=== PATIENT | male | born 1960 | race Caucasian/White ===

== ENCOUNTER 2016-08-16 05:43 | Day surgery (SDC) | payer OTHER ==
[2016-08-16] VITALS (8 sets, daily range): BP systolic 122–135; BP diastolic 77–90; PULSE 54–85; RESP 13–16; O2SAT 94–100
[~2016-08-16] VITALS: Ht 182.9 cm; Wt 101.8 kg
[~2016-08-16 05:43] MED LIST: LISI-567 PO
[2016-08-16] MEDS ORDERED: Glycopyrrolate 0.2 MG/ML 1mL Inj ONE (05:44)
[2016-08-16] MEDS ORDERED: Ondansetron 2 mg/mL 2 mL Inj ONE (05:44)
[2016-08-16] MEDS ORDERED: fentaNYL-PF 50 mCg/mL 2 mL Inj ONE (05:44)
[2016-08-16] MEDS ORDERED: Dexamethasone 4 mg/mL Inj ONE (05:44)
[2016-08-16] MEDS ORDERED: Propofol 10,000 mCg/mL 20 mL Inj ONE (05:44)
[2016-08-16] MEDS ORDERED: Clindamycin 600 mg/50 mL D5W IV ONE (06:00)
[2016-08-16] MEDS: Lactated Ringer's 1,000 ML IV SCH ×2 (06:00→06:18)
[2016-08-16] MEDS ORDERED: Lactated Ringer's 1,000 ML IV SCH (07:21)
[2016-08-16] MEDS ORDERED: Lactated Ringer's 500 ML IV PRN (07:21)
--- NOTE | 2016-08-16 07:21 | PCM.HPANE ---
Patient Data Surgeon Admitting Provider: Attending Provider:Aniket Waggoner MD Primary Care Physician:Milton Other Provider: Reason for Visit Right Meniscal Tear Ht/WT & BMI Height (Feet): 6 Height (Inches): 0 Weight (Kilograms): 101.8 Body Mass Index 30.00 Allergies Coded Allergies: Penicillins (Verified Allergy, Unknown, unknown, 08/10/16) Tetanus Vaccines and Toxoid (Verified Adverse Reaction, Severe, myalgias, 08/10/16) Past Anesthesia History Anesthesia History: Denies:: Fam Anesthesia Reaction, Fam Malignant Hypertherm Diabetes History Hx Diabetes?: No MRSA MRSA: No Medications Hypertension Medication: Yes (lisinopril) Home Meds Incl Beta Kristyn: No Reported Medications Lisinopril 20 Mg [id number] Mg PO DAILY 30 Days Ref 0 08/10/16 History History of ENT Problems?: No Hx of Heart Problems?: Yes Cardiovascular History: Positive for:: Hypertension Denies:: Heart Murmur Hx of Respiratory Problem?: No Respiratory History: Denies:: Use of C-PAP Machine Hx Neurologic Problems?: Yes Neurological History: Positive for:: Headaches Hx of GI Problems?: Yes Gastrointestinal History: Positive for:: Rectal Bleeding (HX HEMORRHOIDS, COLON POLYPS) Hx of Problems?: No Male Hx: Denies:: Prostate Problems Scrotal Mass Testicular Surgery Skin History: Denies:: History Skin Disorders? Pressure Ulcers Hx Musculoskeletal Problems?: Yes Musculoskeletal History: Positive for:: Musculoskeletal Trauma (FALL FROM 6' LADDER-RT MENISCAL TEAR=CURRENT PROBLEM) Osteoarthritis Hx of Psycho/Social Problems?: No Hx Surgeries?: No Hx Any Other Health Problems?: No Other History: Denies:: Cancer Endocrine Disease Hospitalization History Blood Transfusions: Denies:: Blood Transfusions Hx Diabetes: No Hx Alcohol Use: YesAlcoholic Drinks Per Day: 1/WEEKHx Substance Use: NoHave You Smoked inLast 12 mo: No Stop/Bang S-Snoring: Do You Snore Loudly: No T-Tired: feel tired, fatigued: No O-Obsered: Observed not breath: No P-Blood Pressure: treated: Yes B- Body Mass Index > 35 kg/m2: No A- Age over 50: Yes N- Neck Large Circumference: Yes G- Gender Male: Yes SHARON Total Score: 4 SHARON Risk Assessment: High Risk, =/>3 Yes Risk Assessment Category Category 1A: Patient has history of documented sleep apnea, and HAS NOT received any narcotic, sedative or anesthesia administration during this stay. Category 1B: Patient has history of documented sleep apnea, and HAS received any narcotic , sedative or anesthesia administration during this stay Category 2: Patient has SUSPECTED Obstructive Sleep Apnea, and HAS received any narcotic , sedative or anesthesia administration during this stay. Category 3: Patient has SUSPECTED Obstructive Sleep Apnea and HAS NOT received narcotic, sedative or anesthesia administration during this stay. Category 4: Outpatient in Procedural Areas with known sleep apnea or who screen positive for High Risk via the STOP/BANG questionnaire. Exam Exam Vital Signs Vital Signs Date Time Temp Pulse Resp B/P Pulse Ox O2 Delivery O2 Flow Rate FiO2 08/16/16 06:06 36.0 54 16 135/87 98 Room Air General Appearance: Alert, Oriented X3, Cooperative, No Acute Distress HEENT/AIRWAY: MP 2 Lungs: Clear to Auscultation, Normal Air Movement Heart: Exam Unremarkable, Regular Rate/Rhythm, No Murmurs/Rubs/Gallops Meds/Labs/Diagnostics Admission Meds Current Medications Lactated Ringer's (Lr) 1,000 ml @ 120 mls/hr [id number] IV Last administered on t 06:18; Start 08/16/16 at 05:00; Stop 08/16/16 at 13:19 Plan Impression Patient chart reviewed, patient interviewed and anesthestic plan with risks, benefits, and alternatives discussed, and informed consent obtained. NPO Status: mn ASA Physical Status: ASA2 Mod Systemic Disease Anesthetic Plan: GA Bene/Risks/Altern/Consents: Yes HP Complete Prior to Induction: Yes Quinn Neves MD Aug 16, 2016 07:02
[2016-08-16] MEDS ORDERED: Atropine 0.4 mg/mL Inj IVPUSH PRN (07:25)
[2016-08-16] MEDS ORDERED: EPHEDrine Sulfate 50 mg/mL Inj IVPUSH PRN (07:25)
[2016-08-16] MEDS ORDERED: MetoCLOpramide 5 mg/mL 2 mL Inj IVPUSH PRN (07:25)
[2016-08-16] MEDS ORDERED: Ondansetron 2 mg/mL 2 mL Inj IVPUSH PRN (07:25)
[2016-08-16] MEDS ORDERED: HYDROmorphone 1 mg/mL Inj IVPUSH PRN (07:25)
[2016-08-16] MEDS ORDERED: fentaNYL-PF 50 mCg/mL 2 mL Inj IVPUSH PRN (07:25)
[2016-08-16] MEDS ORDERED: Labetalol 5 mg/mL 4 mL Inj IV PRN (07:25)
[2016-08-16] MEDS ORDERED: Phenylephrine 10,000 mCg/mL Inj IVPUSH PRN (07:25)
[2016-08-16] MEDS ORDERED: Ropivacaine-PF 0.5% 30 mL Inj INJ ONE (08:04)
[2016-08-16] MEDS ORDERED: Ketorolac 15 mg/mL Inj IVPUSH ONE (08:40)
[2016-08-16] MEDS ORDERED: HYDROcodone-APAP 5-325 mg Tablet PO PRN (08:40)
--- NOTE | 2016-08-16 08:44 | PCM.ORTHOP ---
Orthopedic Operative Report Date of Service: Aug 16, 2016 Pre Operative Diagnosis Right knee medial and lateral meniscus tears, chondromalacia, moderate synovitis Post Operative Diagnosis Same Procedure Right knee arthroscopy, partial medial meniscectomy, partial lateral meniscectomy, chondroplasty, loose body removal, partial synovectomy, Surgeon Surgeon: Aniket Waggoner MD Assistants: None Indication for Procedure Right knee meniscus tear Findings Per dictation Details of Procedure - right knee arthroscopy, -right knee, partial medial meniscectomy -right knee, partial lateral meniscectomy -right knee, chondroplasty -Right knee loose body removal -right knee, partial synovectomy INDICATIONS: Cale Franco is a 56-year-old male who has had a history of right knee pain. The patient has failed conservative management. X-rays show the tibiofemoral joints to be preserved with mild DJD. MRI was obtained which reveals medial and lateral meniscus tear. The patient has had persistent symptoms and is now brought to the operating room for arthroscopy. The risks, benefits, and alternatives of surgery were discussed with the patient. The risks included but were not limited to infection, bleeding, damage to vessels and nerves, loss of motion, continued pain, re-tear of the meniscus, deep venous thrombosis, and complications due to anesthesia including nerve injury, myocardial infarction, stroke, , etc. The patient stated understanding of the nature of the surgical procedure and gave written and verbal consent to proceed. PROCEDURE: The patient was brought to the operating room and placed supine on the operating room table. After the administration of general anesthesia the patient was placed in the supine position. Examination of the knee revealed no evident instability with a trace effusion. All prominences were padded with appropriately and neurovascular structures protected. The right knee was confirmed to be the appropriate site following surgical time out. The right lower extremity was examined under anesthesia. Range of motion was 0-135 degrees. There was no varus or valgus or anterior or posterior instability. The right lower extremity was then prepped and draped in the usual fashion. Sterile prep and drape was then undertaken of the knee. The knee joint was injected with 20 ccs of 1% Lidocaine, along with 3 ccs of 1 % lidocaine in the medial and lateral portal sites respectively. A standard anterolateral parapatellar stab wound was created. The knee joint was entered with a blunt- tipped obturator, followed by the 30-degree video arthroscope. An anteromedial portal was established under arthroscopic control. A routine arthroscopic survey was performed. The patellofemoral joint showed grade 2/3 chondromalacia which was debrided down to stable tissue with a shaver. The medial joint space was then entered. The articular surfaces showed grade 2/ 3 chondromalacia. A degenerative posterior horn medial meniscal tear was noted with a small flap. The shaver and the cutting instruments were inserted, and a debridement of the meniscus back to healthy tissue was then undertaken. The ACL and PCL were noted to be intact. The lateral joint space was then entered. The articular surfaces were intact with grade 3/4 chondromalacia. There was a degenerative tear to the posterior aspect of the lateral meniscus. A combination of the shaver and cutting instruments were then inserted and a debridement of this tissue down to stable tissue was undertaken. Moderate synovitis was noted anteriorly in the medial and lateral compartment and debrided with a shaver. Large piece of the lateral femoral condyle was noted approximately 15 mm x 10 mm in size was lodged underneath the posterior horn of the lateral meniscus. This was removed with the grasper. The femoral condyle defect was noted to have moderate fibrocartilage and a microfracture and debridement was not performed. The knee was irrigated with an additional 2 liters of lactated Ringer's solution. Excess fluid was drained. The portals were closed with 3-0 nylon as well as xeroform. The knee was injected with 20 mL of 0.5% ropivacaine. A dry sterile dressing was applied, followed by an TASNEEM hose, soft roll, and SIVAN bandage. The patient was awakened in the operating room and transported to the recovery room in satisfactory condition. The patient appeared to tolerate the procedure well. At the completion of surgery the patient had soft compartments , palpable pulses, and brisk capillary refill. There were no complications noted. Please keep dressing clean dry and intact. Do not remove dressing until follow- up in clinic. If the dressing become soaked, you may remove the outer gauze and placed Band-Aids on the wounds. You may weight-bear as tolerated and maintain motion of your knee by bending it daily. You will follow up in clinic in 10-14 days for suture removal, and placement of new Steri-Strips. You will follow-up with me in clinic, and we will start physical therapy if needed. You will follow-up with a PA at 6 weeks postop and 12 weeks postop and will be released after that if improved. Please keep the affected extremity elevated when possible. [Please take aspirin as prescribed You may use ice and/ or heat as needed for comfort. (preferably ice during the first 48-72 hours) Please feel free to call with any further questions, comments, and/or concerns. Grafts, Implants: None Complications There were no periprocedural complications identified. Condition Stable Anesthetic Administered: GA Catheters: None Output, Estimated Blood Loss: 5 Blood Admin during surgery: No Surgical Cast or Splint: Other Surgical Specimen Removed: No Specimen sent to Pathology: No copies to: Aniket Waggoner MD, Christopher L MD Aug 16, 2016 08:44
--- NOTE | 2016-08-16 09:19 | PCM.ANEP1 ---
Post Anesthesia Phase 1 PACU Phase 1 Assessment Date of Service: Aug 16, 2016 Vital Signs Vital Signs Date Time Temp Pulse Resp B/P Pulse Ox O2 Delivery O2 Flow Rate FiO2 08/16/16 08:54 85 16 134/87 95 Room Air 08/16/16 08:39 36.0 54 14 123/83 94 Room Air 08/16/16 08:30 58 15 126/90 95 Room Air 08/16/16 08:25 57 15 125/90 95 Room Air 08/16/16 08:20 58 15 122/84 96 Room Air 08/16/16 08:15 64 14 122/88 97 Room Air 08/16/16 08:11 36.0 63 13 127/77 100 Simple Mask 8 08/16/16 06:06 36.0 54 16 135/87 98 Room Air Anesthetic Administered: GA Level of Alertness: Sleepy, easy to arouse LEWIS's with Equal Strength: Yes Pain: No Nausea or Vomiting: No Oxygen Delivery: Simple Mask Lungs: Clear to Auscultation, Normal Air Movement Quinn Neves MD Aug 16, 2016 09:19
--- NOTE | 2016-08-16 09:35 | PCM.ANEP2 ---
Post Anesthesia Evaluation ASA/CMS Post Anesthesia VS in Patient's Normal Range?: Yes Resp Stable; Airway Patent?: Yes CV Function & Hydration Stable: Yes Mental Status Recovered?: Yes Pain control Satisfactory?: Yes N/V Control Satisfactory?: Yes Quinn Neves MD Aug 16, 2016 09:35
== END 2016-08-16 23:59 | disposition home or self-care (01) ==
LOC: SAS 05:43
PROVIDERS: ATTEND Orthopaedic Surgery
DX: M23.221 Derangement of posterior horn of medial meniscus due to old tear or injury, right knee (principal); M23.251 Derangement of posterior horn of lateral meniscus due to old tear or injury, right knee; M22.41 Chondromalacia patellae, right knee; M65.861 Other synovitis and tenosynovitis, right lower leg; M23.41 Loose body in knee, right knee; M17.11 Unilateral primary osteoarthritis, right knee; I10 Essential (primary) hypertension; W11.XXXA Fall on and from ladder, initial encounter; Y93.9 Activity, unspecified; Y92.9 Unspecified place or not applicable; Y99.9 Unspecified external cause status; Z86.010 Personal history of colon polyps
CPT/HCPCS: 29880; J1100; J1885; J2405; J2795; J3010; J7120